=== PATIENT | female | born 1950 ===

== ENCOUNTER 2020-05-08 09:17 | Day surgery (SDC) | payer OTHER ==
[~2020-05-08 09:17] MED LIST: CODE1TAB37 PO; PROPECIA1 MG PO; Septra Ds Tablet PO; XARELTO10 MG PO
== END 2020-05-08 15:10 | disposition home or self-care (01) ==
LOC: CIR.AMB 09:17
PROVIDERS: ATTEND Obstetrics & Gynecology
DX: N84.0 Polyp of corpus uteri (principal); Z20.828 Contact with and (suspected) exposure to other viral communicable diseases